=== PATIENT | male | born 1935 | race Caucasian/White ===

== ENCOUNTER 2016-10-09 08:50 | Emergency (ER) | payer MEDICARE, OTHER ==
[2016-10-09] MEDS ORDERED: MAG HYDROX/AL HYDROX/SIMETH 30 ML UDC PO STA (09:12)
[2016-10-09] MEDS ORDERED: LIDOCAINE VISCOUS 2% 15 ML UDC MM STA (09:12)
[2016-10-09] MEDS ORDERED: SUCRALFATE 1 GM/10 ML UDC PO STA (09:12)
--- NOTE | 2016-10-09 09:14 | ED Physician Documentation ---
History of Present Illness - Stated complaint Stated Complaint: ABD PX - Chief complaint Chief Complaint: General - History obtained from History obtained from: Patient - History of Present Illness Timing: How many hours ago (6) Pain level max: 6 Pain level now: 4 - Additonal information Additional information: Patient is an 81-year-old male who presents to the emergency department with epigastric abdominal pain that awoke him from sleep at approximately 3 AM today. States that he had "old meat" last night for dinner. No vomiting. No diarrhea. States that the pain feels burning and sharp. Does radiate to the chest. Is better with lying still, worse with moving or sitting up. Has not taken anything for the pain. Has never had these symptoms before. Denies any dyspnea, nausea. Denies any sweating. Does have a history of a cardiac "arrhythmia". Unclear what arrhythmia he has. He is on digoxin. No history of acute coronary syndrome Review of Systems Ten Systems: 10 systems reviewed and negative Constitutional: denies: Fever, Chills Ears: denies: Ear pain Nose: denies: Rhinorrhea / runny nose, Congestion Throat: denies: Sore throat Cardiac: denies: Palpitations, Calf pain Respiratory: denies: Dyspnea, Cough, Hemoptysis, Wheezing GI: denies: Hematemesis, Bloody / black stool Skin: denies: Rash Musculoskeletal: denies: Neck pain, Back pain Neurologic: denies: Headache PD PAST MEDICAL HISTORY - Past Medical History Past Medical History: Yes Cardiovascular: High cholesterol, Arrhythmia - Past Surgical History Past Surgical History: Yes - Present Medications Home Medications: Ambulatory Orders Medication Instructions Recorded Confirmed Cholesterol Medication 10/09/16 Digoxin [Lanoxin] mcg PO 10/09/16 - Allergies Allergies/Adverse Reactions: Allergies Allergy/AdvReac Type Severity Reaction Status Date / Time No Known Drug Allergies Allergy Verified 10/09/16 08:59 - Social History Does the pt smoke?: No Smoking Status: Never smoker Does the pt drink ETOH?: No Does the pt have substance abuse?: No - Immunizations Immunizations are current?: Yes PD ED PE NORMAL - Vitals Vital signs reviewed: Yes - General General: Alert and oriented X 3, No acute distress, Well developed/nourished - HEENT HEENT: PERRL, Moist mucous membranes - Neck Neck: Supple, no meningeal sign - Cardiac Cardiac: RRR, No murmur, Strong equal pulses - Respiratory Respiratory: No respiratory distress, Clear bilaterally - Abdomen Abdomen: Normal bowel sounds, Soft, Non distended, Other (Mild tenderness to palpation epigastric without peritoneal signs) - Derm Derm: Warm and dry - Extremities Extremities: No edema, No calf tenderness / cord - Neuro Neuro: Alert and oriented X 3 - Psych Psych: Normal mood, Normal affect Results - Vitals Vitals: Vital Signs - 24 hr 10/09/16 10/09/16 10/09/16 09:02 09:51 12:15 Temperature 37.0 C Heart Rate 57 L 66 60 Respiratory 16 15 20 Rate Blood Pressure 137/83 H 161/89 H 137/72 H O2 Saturation 95 97 97 Oxygen O2 Source Room air - EKG (time done) 0902 Rate: Rate (enter#) (60) Rhythm: NSR [place]: Normal Intervals: Prolonged CO QRS: Normal Ischemia: Normal ST segments Computer interpretation: Agree with computer - Labs Labs: Laboratory Tests 10/09/16 10/09/16 10/09/16 09:25 09:25 09:25 WBC 8.2 RBC 4.53 L Hgb 14.3 Hct 41.5 L MCV 91.5 MCH 31.7 H MCHC 34.6 RDW 13.0 Plt Count 136 MPV 10.2 Neut # 5.3 Lymph # 1.8 Harper # 0.8 Eos # 0.2 Baso # 0.0 Absolute Nucleated RBC 0.01 Nucleated RBCs 0.1 Sodium 140 Potassium 4.2 Chloride 103 Carbon Dioxide 27 Anion Gap 10.0 BUN 22 H Creatinine 1.1 Estimated GFR (MDRD) 64 L Glucose 113 H Calcium 9.8 Total Bilirubin 0.8 AST 24 ALT 20 Alkaline Phosphatase 63 Troponin I < 0.04 Total Protein 7.5 Albumin 4.3 Globulin 3.2 Albumin/Globulin Ratio 1.3 Lipase 26 10/09/16 13:02 WBC RBC Hgb Hct MCV MCH MCHC RDW Plt Count MPV Neut # Lymph # Harper # Eos # Baso # Absolute Nucleated RBC Nucleated RBCs Sodium Potassium Chloride Carbon Dioxide Anion Gap BUN Creatinine Estimated GFR (MDRD) Glucose Calcium Total Bilirubin AST ALT Alkaline Phosphatase Troponin I < 0.04 Total Protein Albumin Globulin Albumin/Globulin Ratio Lipase - Rads (name of study) Ct chest/abd/pelvis aorta Radiology: Prelim report reviewed, EMP read contemporaneously, See rad report ( 1. 4.8 cm fusiform ectasia of ascending thoracic aorta. 2. 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 3. 3.9 cm diameter aneurysmal dilatation of proximal descending thoracic aorta. Tortuous descending thoracic aorta. 4. No abdominal aortic aneurysm. 5. No aortic dissection. 6. No focal consolidation. 7. A 4.7 cm complex cystic lateral left liver lobe lesion. Dependent increased density, question of limited to debris or hemorrhage. Recommend comparison with prior outside studies if possible or follow-up imaging, preferably with MRI. 8. Two hypervascular liver lesions measuring up to 1.1 cm. Question vascular shunts or small liver lesions. 9. Diverticulosis. ) cxr Radiology: Prelim report reviewed, EMP read contemporaneously, See rad report ( Possible mild interstitial pulmonary edema. No focal airspace consolidation. Normal heart size. Prominence of the aortic arch may represent an aneurysm. Correlation with patient history is recommended. Chest CT angiography could be performed for further evaluation if indicated. ) PD MEDICAL DECISION MAKING - ED course Complexity details: reviewed results, re-evaluated patient, considered differential (No ST elevation WI, no aortic dissection, no PE, no tension pneumothorax, no aortic aneurysm), d/w patient ED course: Patient is an 81-year-old gentleman who presents to the emergency department with epigastric pain that awoke him from sleep. This resolved with a GI cocktail in the emergency department. On chest x-ray he was found to have concern for a possible aortic aneurysm, therefore CT scan was undertaken. CT scan revealed a 4.8cm fusiform ectasia of the ascending thoracic aorta as well as an aberrant right subclavian artery with 2.2 cm aneurysmal dilatation of the right subclavian arterial origin and a 3.9 cm diameter aneurysmal dilatation of the proximal descending thoracic aorta. He is also found to have a complex cystic lesion in the left lobe of the liver. Recommend a outpatient MRI for further characterization. Patient has no tenderness over the liver at this time. Asymptomatic in the ER. We will have him follow-up closely with his doctor for follow-up of all of the above findings. Patient is well-appearing, nontoxic. Patient counseled regarding signs and symptoms for which I believe and urgent re-evaluation would be necessary. Patient with good understanding of and agreement to plan and is comfortable going home at this time This document was made in part using voice recognition software. While efforts are made to proofread this document, sound alike and grammatical errors may occur. Departure - Departure Disposition: 01 Home, Self Care Clinical Impression: Resolved abdominal pain, Thoracic aortic aneurysm without rupture, Liver cyst Condition: Good Instructions: ED Aneurysm Abdominal Aortic Stable, ED Abdominal Pain Unkn Cause Follow-Up: Ab Lowry MD [Primary Care Provider] - Within 3 Days Comments: Return if you worsen. You need to follow-up with Dr. Lowry regarding your ascending thoracic aneurysm of 4.8 cm and Descending thoracic aortic aneurysm of 3.9 cm. You also have a 2.2 cm aneurysmal dilatation of the right subclavian artery. You also have a 4.7 cm complex cyst and near left liver lobe. The radiologist is recommending an MRI of your abdomen which will need to be done with your doctor as an outpatient. You will need follow up for all of these findings with your doctor. Return if you worsen especially if you develop chest or back pain. Your blood pressure was elevated today on check in to the emergency department. This does not mean that you have hypertension, it is a common phenomenon to check into the emergency department and have elevated blood pressure. I recommend that you see your primary care physician within the week to have it rechecked when you're feeling better. Discharge Date/Time: 10/09/16 14:11
[2016-10-09] MEDS ORDERED: LIDOCAINE VISCOUS 2% 15 ML UDC MM ONE (09:30)
[2016-10-09] MEDS ORDERED: SUCRALFATE 1 GM/10 ML UDC ONE (09:30)
[2016-10-09] MEDS ORDERED: MAG HYDROX/AL HYDROX/SIMETH 30 ML UDC ONE ×2 (09:31)
[2016-10-09 09:41] LABS: BASOPHILS % (AUTO) 0.5 %; EOSINOPHILS # (AUTO) 0.2 10^3/uL (0.0-0.7); EOSINOPHILS % (AUTO) 2.4 %; HCT - HEMATOCRIT 41.5 % (42.0-52.0); HGB - HEMOGLOBIN 14.3 g/dL (14.0-18.0); LYMPHOCYTES # (AUTO) 1.8 10^3/uL (1.5-3.5); LYMPHOCYTES % (AUTO) 22.1 %; MEAN CORPUSCULAR HEMOGLOBIN 31.7 pg (27.0-31.0); MEAN CORPUSCULAR HGB CONC 34.6 g/dL (32.0-36.0); MEAN CORPUSCULAR VOLUME 91.5 fL (80.0-94.0); MEAN PLATELET VOLUME 10.2 fL (7.4-11.4); MONOCYTES # (AUTO) 0.8 10^3/uL (0.0-1.0); MONOCYTES % (AUTO) 9.8 %; NEUTROPHILS # (AUTO) 5.3 10^3/uL (1.5-6.6); NEUTROPHILS % (AUTO) 65.2 %; NUCLEATED RED BLOOD CELLS AUTO 0.1 /100WBC; RED BLOOD COUNT 4.53 10^6/uL (4.70-6.10); UNCORRECTED WHITE BLOOD COUNT 8.2 x10^3/uL; WHITE BLOOD COUNT 8.2 x10^3/uL (4.8-10.8)
[2016-10-09 09:52] LABS: ALBUMIN/GLOBULIN RATIO 1.3 (1.0-2.2); BILIRUBIN,TOTAL 0.8 mg/dL (0.2-1.0); CALCIUM 9.8 mg/dL (8.5-10.3); CREATININE 1.1 mg/dL (0.6-1.2); POTASSIUM 4.2 mmol/L (3.5-5.0); TOTAL PROTEIN 7.5 g/dL (6.7-8.2)
--- NOTE | 2016-10-09 09:57 | XRAY Preliminary Report ---
Exam: XR Chest 1 View IMPRESSION: 1. Possible mild interstitial pulmonary edema. No focal airspace consolidation. 2. Normal heart size. 3. Prominence of the aortic arch may represent an aneurysm. Correlation with patient history is recom mended. Chest CT angiography could be performed for further evaluation if indicated. [facility] SITE ID: [id number]
--- NOTE | 2016-10-09 09:59 | XRAY Report ---
EXAM: CHEST RADIOGRAPHY EXAM DATE: 10/09/2016 09:46 AM. CLINICAL HISTORY: Chest pain. COMPARISON: None. TECHNIQUE: 1 view. FINDINGS: Lungs/Pleura: Mild linear interstitial opacities seen bilaterally could reflect mild interstitial pro cess such as pulmonary edema. No focal airspace consolidation. No evidence for pleural effusion or pn eumothorax. Mediastinum: Normal heart size and mediastinum. Tortuous thoracic aorta is noted with a prominent arc h which could represent an aneurysm. Other: No acute bony thoracic abdomen amount. IMPRESSION: 1. Possible mild interstitial pulmonary edema. No focal airspace consolidation. 2. Normal heart size. 3. Prominence of the aortic arch may represent an aneurysm. Correlation with patient history is recom mended. Chest CT angiography could be performed for further evaluation if indicated. [facility] Referring Provider Line: [phone] SITE ID: [id number]
[2016-10-09] MEDS ORDERED: IOPAMIDOL-300 100 ML VIAL IVP ONE (12:03)
[2016-10-09 12:15] VITALS: BP 137/72
--- NOTE | 2016-10-09 12:42 | CT Preliminary Report ---
Exam: CT Chest Angio (AORTA) IMPRESSION: 4.8 cm fusiform ectasia of ascending thoracic aorta. Aberrant right subclavian artery with 2.2 cm ane urysmal dilatation of right subclavian origin. 3.9 cm diameter aneurysmal dilatation of proximal desc ending thoracic aorta. Tortuous descending thoracic aorta. No abdominal aortic aneurysm. No aortic dissection. No focal consolidation. A 4.7 cm complex cystic lateral left liver lobe lesion. Dependent increased density, question if due to debris or hemorrhage. Recommend comparison with prior outside studies if possible or follow-up jose ging, preferably with MRI. 2 hypervascular liver lesions measuring up to 1.1 cm. Question vascular shunts or small liver lesions. Diverticulosis. [facility] SITE ID: [id number]
--- NOTE | 2016-10-09 13:49 | CT Report ---
REVISED: THIS REPORT WAS ORIGINALLY SIGNED ON 10/09/2016 @ 1349. ORDERS LINKED ON 10/13/2016. EXAM: CT ANGIOGRAM CHEST, ABDOMEN AND PELVIS EXAM DATE: 10/09/2016 10:59 AM. CLINICAL HISTORY: Possible aortic aneurysm, chest/abd pain. COMPARISONS: Chest x-ray same day. TECHNIQUE: Routine axial helical CT angiographic imaging was performed through the chest, abdomen, and pelvis. IV Contrast: 100 mL Isovue 300. Reconstructions: Coronal, sagittal, and 3D MIP reconstructions of the aorta. In accordance with CT protocol optimization, one or more of the following dose reduction techniques were utilized for this exam: automated exposure control, adjustment of mA and/or KV based on patient size, or use of iterative reconstructive technique. FINDINGS: Vascular Structures: Aberrant right subclavian artery, normal variant. Aneurysmal dilatation of right subclavian arterial origin measuring 2 x 2.2 cm diameter. Fusiform ectasia of ascending thoracic aorta measuring up to 4.8 cm diameter. Tortuous descending thoracic aorta. Aneurysmal dilatation of proximal descending thoracic aorta measuring 3.9 cm. Mid descending aorta measures 2.7 cm. Distal descending aorta 2.8 cm. Tortuous abdominal aorta without aneurysm. Infrarenal abdominal aorta measures 2 cm diameter. Distal abdominal aorta prior to bifurcation measures 1.8 cm. No aortic dissection. Lungs/Pleura: Areas if mild atelectasis and/or scarring within the lingula. Mild left greater than right lower lobe atelectasis. No focal consolidation. No pneumothorax or pleural effusion. Mediastinum: Normal. No cardiac enlargement or adenopathy. Abdominal Organs: There is a 4.6 x 4.7 cm complex cystic lateral left liver lobe lesion with dependent increased attenuation. There are 2 similar focal enhancing liver areas. These measure 1.1 cm within segment 2 and 0.8 cm within segment 8. Bilateral renal cysts. No hydronephrosis or suspicious mass. The pancreas, adrenal glands, and spleen are unremarkable. Peritoneal Cavity: Diverticulosis without focal inflammation. No dilated bowel. Pelvic Organs: Enlarged prostate. Bladder is partially distended and grossly unremarkable. Bones: Degenerative changes are noted within the cervical and lumbar spine and lower thoracic spine. Prominent degenerative disk changes at L2-L3 level. Other: 0.9 cm right thyroid nodule. IMPRESSION: 1. 4.8 cm fusiform ectasia of ascending thoracic aorta. 2. 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 3. 3.9 cm diameter aneurysmal dilatation of proximal descending thoracic aorta. Tortuous descending thoracic aorta. 4. No abdominal aortic aneurysm. 5. No aortic dissection. 6. No focal consolidation. 7. A 4.7 cm complex cystic lateral left liver lobe lesion. Dependent increased density, question of limited to debris or hemorrhage. Recommend comparison with prior outside studies if possible or follow-up imaging, preferably with MRI. 8. Two hypervascular liver lesions measuring up to 1.1 cm. Question vascular shunts or small liver lesions. 9. Diverticulosis. [facility] Referring Provider Line: [phone] SITE ID: [id number]
== END 2016-10-09 14:11 | disposition home or self-care (01) ==
LOC: ED 08:50
DX: I71.2 Thoracic aortic aneurysm, without rupture (principal); K76.89 Other specified diseases of liver; R03.0 Elevated blood-pressure reading, without diagnosis of hypertension; E78.00 Pure hypercholesterolemia, unspecified; I49.9 Cardiac arrhythmia, unspecified
CPT/HCPCS: 36415; 71010; 71275; 74175; 80053; 83690; 84484; 85025; 93005; 99284; A9270; Q9967

== ENCOUNTER 2016-10-15 09:29 | Outpatient (CLI) | payer MEDICARE, OTHER ==
[2016-10-15] MEDS ORDERED: GADOBUTROL 7.5 MMOL/7.5 ML VIAL IVP ONE (10:37)
--- NOTE | 2016-10-16 14:13 | MRI Report ---
EXAM: MR ABDOMEN WITH AND WITHOUT CONTRAST (MR LIVER) EXAM DATE: 10/15/2016 10:50 AM. CLINICAL HISTORY: Complex cyst of liver. COMPARISON: Abdominal CT angiography performed 10/09/2016. TECHNIQUE: Multiplanar breath-hold T1, T2, and DWI sequences obtained through the abdomen on an [facility] [place], [place] jeremy. Images obtained before and after administration of 7 mL Gadavist intravenous contrast. Multiph ase postcontrast images obtained of the liver and abdomen. FINDINGS: Lung Bases: Unremarkable. Liver: No fatty liver infiltration. Smooth liver contours. No MR evidence for cirrhosis. Patent juan r l and hepatic veins. Within the peripheral aspect of lateral left liver lobe segment 2, note is again made of a complex cy stic lesion measuring 4.5 x 4.5 x 4.6 cm. The lesion has heterogeneous appearance on precontrast T1-w eighted imaging with increased T1 signal compatible with hemorrhage. Postcontrast subtraction images show no evidence for enhancement. A thin septation is noted. T2-weighted images show central debris o r clot. No fat evident within the lesion. 4 mm segment 4A, T2 hyperintense focus with venous and persistent delayed enhancement compatible with benign hemangioma. Gallbladder: The gallbladder is partially distended and appears normal with no wall thickening or sto ne. Pancreas: The pancreas appears normal with no mass or ductal dilatation. Spleen: The spleen appears normal. Kidneys and Adrenals: No suspicious renal mass or hydronephrosis. Bilateral benign renal cysts are no reyna. These include a 3.2 cm right upper parapelvic cyst. Several small scattered right renal simple c yst. 2.9 cm left lower renal Bosniak II cyst with thin septations. The adrenals appear normal. Bowel: The small bowel and colon appear normal with no inflammation or obstruction. Retroperitoneum: The retroperitoneal structures appear normal with no mass or lymphadenopathy. IMPRESSION: 1. A 4.6 cm probable lateral left liver lobe hemorrhagic cyst or hematoma. Post-contrast subtraction images show no evidence for convincing internal enhancement to suggest HCC, adenoma or metastasis. T 2-weighted images show internal debris or clot. Recommend 6 month follow-up ultrasound or CT. 2. Small right liver lobe hemangioma. 3. Benign bilateral renal cysts. [facility] Referring Provider Line: [phone] SITE ID: [id number]
== END 2016-10-15 09:30 | disposition home or self-care (01) ==
LOC: DI 09:29
PROVIDERS: ATTEND Internal Medicine
DX: K76.89 Other specified diseases of liver (principal); D18.03 Hemangioma of intra-abdominal structures; N28.1 Cyst of kidney, acquired
CPT/HCPCS: 74183; A9585

== ENCOUNTER 2017-02-08 07:48 | Day surgery (SDC) | payer MEDICARE, OTHER ==
[~2017-02-08 07:48] MED LIST: ceFAZolin 2 GM/50 ML 2 GM/50 ML BAG IV ONE
[2017-02-08] MEDS ORDERED: LACTATED RINGERS 1,000 ML IV ONE ×3 (07:52→13:52)
[2017-02-08] MEDS ORDERED: BUPIVACAINE 0.5% PF 30 ML VIAL SUBQ ONE ×2 (08:51→11:22)
--- NOTE | 2017-02-08 11:52 | OPERATIVE REPORT ---
Operative Report - General Procedure Date: 02/08/17 Planned Procedure: TEP right inguinal herniorrhaphy Pre-Op Diagnosis: RIGHT inguinal hernia, possible LEFT inguinal hernia Procedure Performed: TEP bilateral indirect inguinal herniorrhaphy Post Op Diagnosis: BILATERAL indirect inguinal hernias - Procedure Note Primary Surgeon: Asher Simons MD Anesthesia Provider: Asher Nuno MD Anesthesia Technique: General ET tube, Local (30 mL 1/2% marcaine) IV Fluids (mL): 900 Estimated Blood Loss (mL): 10 Urine Output (mL): 125 Complications: None. - Other Other Information/Narrative: OPERATIVE DESCRIPTION/REPORT: After verbal and written informed consent was obtained detailing the risks of infection, bleeding requiring transfusion with its risks, nerve injury, and , and after I met with the patient confirming the surgery and the site of the surgery, the patient was brought to the operative suite and placed supine on the operating table. Great care was taken to avoid pressure points to prevent pressure necrosis or nerve injury. Monitoring devices were applied along with TEDs and pneumatic compressive stockings (to prevent DVT). The patient received preoperative antibiotics for surgical prophylaxis. Dr. Asher Nuno sedated and induced general anesthesia and provided anesthesia care for the entirety of the case. The patient was prepped and draped in the usual sterile manner. With the patient draped my initials were clearly visible. A "time in" then confirmed that the patient was identified with 3 identifiers ( name, date and medical record number), the history and physical was in the chart, the signed consent confirming the procedure was in the chart, the patient was in the correct position, the aforementioned prophylactic measures were in place or given, we had the correct personnel and equipment to complete the procedure and that anesthesia, surgery and nursing were given an opportunity to express any concerns. With the agreement of everyone in the room , we proceeded with the operation. A transverse skin incision was made below and to the right of the umbilicus to a length of approximately 3 cm. The incision was carried through the subcutaneous tissue. Bleeders were cauterized. The right rectus sheath was identified and incised lateral to the midline. The preperitoneal space was then developed following insertion of a Spacemaker balloon, which was inflated under direct vision. Following removal of the Spacemaker balloon, a #10 trocar was placed in the preperitoneal space and the preperitoneal space was insufflated with CO2 to a steady state pressure of 15 mmHg. A 10 mm 30 degree laparoscope was inserted in the preperitoneal space. Two #5 trocars were placed in the lower midline 5 cm and 10 cm away from the umbilical incision under direct vision and without incident. Landmarks including symphysis pubis, right and left Kennedy ligaments and right and left inferior epigastric vessels were identified. Dissection was then continued lateral to the transverse abdominis muscle bilaterally. The right side was addressed first. The internal ring was then explored for the presence of the indirect hernia sac and an indirect hernia was found. The sac was dissected free from the cord structures and the cremasteric muscles. A large cord lipoma was also dissceted back out of the internal ring. The dissection brought the peritoneum posterolaterally so that it would lay on proper side of the mesh. Exploration of the medial space showed no medial defect consistent with a direct hernia. A large size Bard 3D mesh (Lot #[id number] , reference #[id number], use by date 2021-12-18) was placed in the preperitoneal space and anchored to the symphysis pubis with a SecureStrap tacker (Lot # [id number], reference #[id number], use by date 2018-02-17). The mesh covered the internal ring as well as the medial space. Great care was taken to ensure that the peritoneum was swept down so that it could not "creep" behind the mesh and result in a recurrent hernia. The left side was then addressed. Again there was the presence of an indirect inguinal hernia and cord lipoma and no direct inguinal hernia. This side was repaired in exactly the same way as was as the right hand side with the two notable differences being that the hernia was smaller and less dissection was required and the mesh used was a large size Bard 3D mesh (Lot #[id number], reference #[id number], use by date 2021-12-18). 20 mL of 1/2% Marcaine was injected into the preperitoneal space and then remaining 10 mL at all three incisions. The preperitoneal space was then deflated and during the deflation the mesh was watched to ensure that it was sandwiched nicely in place and did not change position. All trocars were withdrawn. The defect in the rectus sheath was closed with 3 figure-8 0 Vicryl sutures. The skin incisions were closed with subcuticular 4-0 Monocryl suture. The prep was washed off and Mastisol and Steristrips were applied at all the incisions. At this point a time out was performed that confirmed that all the counts were correct, the procedure that was performed, the blood loss, the IV fluids administered, and the patients condition. The patient's scrotum was evaluated to ensure that the testicles were well seated within the scrotum and that there was no swelling. The prep was washed off and Benzoin and Steristrips were applied. Having tolerated the procedure well, the patient was subsequently extubated and taken to recovery room in good and stable condition.
[2017-02-08] MEDS ORDERED: PROPOFOL 200 MG/20 ML VIAL IVP ONE (11:58)
[2017-02-08] MEDS ORDERED: ROCURONIUM 50 MG/5 ML VIAL IVP ONE (11:58)
[2017-02-08] MEDS ORDERED: PHENYLEPHRINE 10 MG/ML VIAL IV ONE (11:58)
[2017-02-08] MEDS ORDERED: GLYCOPYRROLATE 1 MG/5 ML VIAL IVP ONE (11:58)
[2017-02-08] MEDS ORDERED: fentaNYL 100 MCG/2 ML VIAL IVP ONE (11:58)
[2017-02-08] MEDS ORDERED: NEOSTIGMINE 1 MG/1 ML 10 ML MDV IVP ONE (11:58)
[2017-02-08] MEDS ORDERED: ePHEDrine 50 MG/ML VIAL IVP ONE (11:58)
[2017-02-08] MEDS ORDERED: ACETAMINOPHEN 1,000 MG/100 ML 100 ML IV ONE (12:21)
[2017-02-08] MEDS ORDERED: ONDANSETRON 4 MG/2 ML VIAL ONE (14:10)
[2017-02-08 15:49] VITALS: BP 128/66
== END 2017-02-08 07:49 | disposition home or self-care (01) ==
LOC: SDS 07:48
PROVIDERS: ATTEND Surgery
PROC: 0YUA4JZ Supplement Bilateral Inguinal Region with Synthetic Substitute, Percutaneous Endoscopic Approach (ICD-10-PCS; 2017-02-08)
PROC: 0YUA0JZ Supplement Bilateral Inguinal Region with Synthetic Substitute, Open Approach (ICD-10-PCS; principal; 2017-02-08 09:00)
DX: K40.20 Bilateral inguinal hernia, without obstruction or gangrene, not specified as recurrent (principal); D17.6 Benign lipomatous neoplasm of spermatic cord; I10 Essential (primary) hypertension; I48.0 Paroxysmal atrial fibrillation
CPT/HCPCS: 49650; C1781; J0131; J0690; J7120

== ENCOUNTER 2017-03-07 19:39 | Outpatient (CLI) | payer MEDICARE, OTHER ==
--- NOTE | 2017-03-07 20:48 | Ultrasound Preliminary Report ---
Exam: US DUPLEX EXT VEINS RIGHT IMPRESSION: No evidence for deep venous thrombosis. [facility] The above findings were discussed with Dr. Erickson by Dr. Stacey Farley at 20:46 hrs on 03/07/17. SITE ID: [id number]
--- NOTE | 2017-03-07 21:02 | Ultrasound Report ---
EXAM: RIGHT LOWER EXTREMITY VENOUS ULTRASOUND EXAM DATE: 03/07/2017 08:26 PM. CLINICAL HISTORY: Right leg/foot swelling, tenderness. COMPARISON: None. TECHNIQUE: Real-time sonographic vascular imaging was performed by the corrugated box machine operator through the lower extremity utilizing both color-flow and Doppler spectral analysis. Multiple disability representative static jose ges were saved for review. FINDINGS: Common Femoral Vein (CFV): Normal. CFV-GSV Junction: Normal. Profunda Femoral Vein (PFV): Normal. Femoral Vein (FV) Prox: Normal. Femoral Vein (FV) Mid: Normal. Femoral Vein (FV) Dist: Normal. Popliteal Vein: Normal. Posterior Tibial Veins: Normal. Peroneal Veins: Normal. IMPRESSION: No evidence for deep venous thrombosis. [facility] The above findings were discussed with Dr. Erickson by Dr. Stacey Farley at 20:46 hrs on 03/07/17. Referring Provider Line: [phone] SITE ID: [id number]
== END 2017-03-07 19:40 | disposition home or self-care (01) ==
LOC: DI 19:39
PROVIDERS: ATTEND Family Medicine
DX: M79.604 Pain in right leg (principal); R22.41 Localized swelling, mass and lump, right lower limb

== ENCOUNTER 2021-07-08 08:24 | Outpatient (CLI) | payer MEDICARE, OTHER | END 2021-07-08 08:25 | disposition E | LOC: EMS 08:24 | DX: I46.9 Cardiac arrest, cause unspecified (principal) | CPT/HCPCS: A0425; A0433 ==

== ENCOUNTER 2021-07-08 08:36 | Emergency (ER) | payer MEDICARE, OTHER ==
[2021-07-08] MEDS ORDERED: CALCIUM CHLORIDE ABBOJECT 1000MG/10 ML SYRINGE IVP ONE (08:37)
[2021-07-08] MEDS ORDERED: SODIUM BICARBONATE ABBOJECT 50 MEQ/50 ML SYRINGE IVP ONE (08:37)
[2021-07-08] MEDS ORDERED: AMIODARONE 150 MG/3 ML VIAL IV ONE (08:37)
[2021-07-08] MEDS ORDERED: EPINEPHrine ABBOJECT 1 MG/10 ML SYRINGE IVP ONE (08:37)
[2021-07-08] MEDS ORDERED: AMIODARONE 150 MG/100 ML IV ONE (09:00)
[2021-07-08] MEDS ORDERED: AMIODARONE 360 MG/200 ML IV ONE (09:00)
[2021-07-08] MEDS ORDERED: AMIODARONE 360 MG/200 ML 200 ML IV ONE (09:06)
--- NOTE | 2021-07-08 09:11 | ED Physician Documentation ---
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 She was not physically able to perform good CPR. EMS arrived to find patient in PEA/agonal rhythm. ACLS with IV/intubated/epi. Changed to v-fib and defib. Back to sinus with faint pulses, then none by ED arrival.), Today Timing - onset during: Light activity (patient had been up and active just prior to found on floor.) Preceding symptoms: None (his said he was not having complaints prior to event.) Contributing factors: CAD Witnessed: Arrest not witnesssed (but saw him just few minutes prior, then found him unresponsive when went into next room.) Fall: Unknown Bystander CPR: No bystander CPR, Downtime before CPR (10-15 minutes per EMS dispatch/arrival time.) EMS findings: Unresponsive, Apneic, Pulseless, PEA Treatment ARTIFICIAL LOG MACHINE OPERATOR: CPR, Defibrillated, Oxygen, Intubated, Epi Advanced directive: No advanced directive, Full code Review of Systems Unable to obtain: Unresponsive, Intubated, Other (info from after her arrival) Constitutional: denies: Fever Cardiac: denies: Chest pain / pressure Respiratory: denies: Dyspnea, Cough GI: denies: Abdominal Pain, Vomiting, Diarrhea Neurologic: denies: Head injury PD PAST MEDICAL HISTORY - Past Medical History Cardiovascular: Hypertension, High cholesterol, Atrial fibrillation, Other (abdominal aneurysm repair) Respiratory: None Endocrine/Autoimmune: HyPOthyroidism GI: None : None HEENT: Chronic sinusitis, Other Psych: None, Depression Musculoskeletal: Other Derm: Other - Past Surgical History Past Surgical History: Yes HEENT: Tonsil/Adenoidectomy - Present Medications Home Medications: Ambulatory Orders Medication Instructions Recorded Confirmed Digoxin [Lanoxin] 250 mcg PO DAILY 02/07/17 02/08/17 Famotidine [Pepcid] 20 mg PO ONCE 02/07/17 02/08/17 Levothyroxine Sodium [Levoxyl] 75 mcg PO DAILY 02/07/17 02/08/17 Sildenafil Citrate [Viagra] 100 mg PO DAILY 02/07/17 02/08/17 Simvastatin 20 mg PO DAILY 02/07/17 02/08/17 atenoloL [Atenolol] 25 mg PO DAILY 02/07/17 02/08/17 - Allergies Allergies/Adverse Reactions: Allergies Allergy/AdvReac Type Severity Reaction Status Date / Time No Known Drug Allergies Allergy Verified 07/08/21 09:18 - Living Situation Living Situation: reports: With spouse/s.o. Living Arrangement: reports: At home - Social History Does the pt smoke?: No Smoking Status: Never smoker Does the pt drink ETOH?: No Does the pt have substance abuse?: No - Immunizations Immunizations are current?: Yes PD ED PE NORMAL - Vitals Vital signs reviewed: Yes (arrives CPR in progress. ) - General General: Other (unresponsive) - HEENT HEENT: Atraumatic - Respiratory Respiratory: Clear bilaterally, Other (symmetric breath sounds with bagging. ETT seems in place. End tidal CO2 showing 20s with good waveform. ) - Abdomen Abdomen: Non distended - Derm Derm: Normal color, Warm and dry - Extremities Extremities: No edema - Neuro Neuro: Other (unresponsive and no resp effort. ) Results - Vitals Vitals: Oxygen O2 Source Room air - EKG (time done) upon ROSC Rhythm: Other (junctional rhythm) Intervals: Wide QRS Ischemia: ST elevation c/w ischemia (V1 and AVR, with nonspecific changes diffusely otherwise. ) - Labs Labs: Laboratory Tests 07/08/21 07/08/21 07/08/21 09:03 09:03 09:03 WBC 9.1 RBC 3.73 L Hgb 12.1 L Hct 36.4 L MCV 97.6 H MCH 32.4 H MCHC 33.2 RDW 12.6 Plt Count 43 L MPV 12.0 H Neut # (Auto) Not Reportable Lymph # (Auto) Not Reportable Broome # (Auto) Not Reportable Eos # (Auto) Not Reportable Baso # (Auto) Not Reportable Absolute Nucleated RBC Not Reportable Total Counted 100 Band Neuts % (Manual) 4 Reactive Lymphs % (Man) 15 Abnorm Lymph % (Manual) 0 Myelocytes % 4 H Nucleated RBC % Not Reportable Neutrophils # (Manual) 2.3 Lymphocytes # (Manual) 6.2 H Monocytes # (Manual) 0.3 Eosinophils # (Manual) 0.0 Basophils # (Manual) 0.0 Differential Comment MANUAL DIFFERENTIAL RBC Morph Micro Appear 1+ ANISOCYTOSIS Bld Gas Analysis Time Sample Site ABG pH ABG pCO2 ABG pO2 ABG HCO3 ABG Total CO2 ABG O2 Saturation ABG Base Excess Kenneth Test Respiration Rate O2 Delivery Device Vent Mode FiO2 Tidal Volume PEEP Sodium 141 Potassium 3.9 Chloride 103 Carbon Dioxide 19 L Anion Gap 19.0 H BUN 28 H Creatinine 1.6 H Estimated GFR (MDRD) 41 L Glucose 335 H Calcium 7.5 L Total Bilirubin 0.6 AST 584 H ALT 551 H Alkaline Phosphatase 57 Troponin I High Sens 258.2 H* B-Natriuretic Peptide Total Protein 4.6 L Albumin 2.5 L Globulin 2.1 Albumin/Globulin Ratio 1.2 Lipase 67 H Last Dose Date Last Dose Time Digoxin 07/08/21 07/08/21 07/08/21 09:03 09:03 09:16 WBC RBC Hgb Hct MCV MCH MCHC RDW Plt Count MPV Neut # (Auto) Lymph # (Auto) Broome # (Auto) Eos # (Auto) Baso # (Auto) Absolute Nucleated RBC Total Counted Band Neuts % (Manual) Reactive Lymphs % (Man) Abnorm Lymph % (Manual) Myelocytes % Nucleated RBC % Neutrophils # (Manual) Lymphocytes # (Manual) Monocytes # (Manual) Eosinophils # (Manual) Basophils # (Manual) Differential Comment RBC Morph Micro Appear Bld Gas Analysis Time 0929 Sample Site RIGHT RADIAL ABG pH 7.22 L ABG pCO2 29 L ABG pO2 112 H ABG HCO3 11.5 L ABG Total CO2 12.4 L ABG O2 Saturation 97 ABG Base Excess -14.8 L Kenneth Test POSITIVE Respiration Rate 22 O2 Delivery Device VENTILATOR Vent Mode ASSIST/CONTROL FiO2 100.00 Tidal Volume 400 PEEP 5 Sodium Potassium Chloride Carbon Dioxide Anion Gap BUN Creatinine Estimated GFR (MDRD) Glucose Calcium Total Bilirubin AST ALT Alkaline Phosphatase Troponin I High Sens B-Natriuretic Peptide 150 H Total Protein Albumin Globulin Albumin/Globulin Ratio Lipase Last Dose Date UNK Last Dose Time UNK Digoxin 0.5 - Rads (name of study) chest xray Radiology: Prelim report reviewed (interstitial edema. ETT at bill, suggested to pull back 2 cm. ), See rad report repeat CXR Radiology: Prelim report reviewed, EMP read contemporaneously (no PTX, increased edema. ), See rad report PD MEDICAL DECISION MAKING - ED course Complexity details: reviewed results, re-evaluated patient, considered differential (consider acute GA. Had initially PEA rhythm so consider volume, K, acidosis, voume, glucose, tamponade, etc. ), d/w patient, d/w family ED course: Arrived with CPR in progress, pulses palpable with compressions. Intubated with symmetric sounds. Given Epi and bicarb, with then palpable pulses briefly. This slowed to oscar without pulses and CPR resumed. More ACLS and on pulse check, was in coarse vfib. Defib and resumed CPR. given epi. Next check fine vfib. Shocked and amiodarone. Next pulse check was junctional with pulses. Amiodarone and norepineophrine drips started due to low BP. Bedside U/S showed symmetric but weak contractions. No pericardial fluid and brief abd look did not show free fluid in abd. His condition wavered from pulses to faint pulses. He did seem responsive to bicarb with good return of pulses/contractility. Norepi maxed but BP still not concistently adequate. He is on digoxin and has junctional rhythm with wide QRS. Lab was going to be an hour or so for dig level. So ordere DigiFab for concern of dig toxicity. Also initiated bicarb drip. He was still having undulating level of pressure/pulses. EPi and CPR intermittently when appropriate. I talked with [facility] ER physician who also consulted their cardiology. Patiet ECG did not fit STEMI and they did not have ICU beds. Attempt for transfer as seemed stable/critical with continual pulse/BP on pressors for over 40 minutes. 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 Epi drip started and bolus dosing. Brief episode of desats on vent was improved with BVM for short time. perhaps mucous plugging or such. Repeat CXR showed still correct tube position and no PTX. The pattenr of then brief ROSC with pulses then fading to no pulse/minimal contractility on U/S, responding briefly to meds and CPR occured a few times over the next 20-30 minutes. He did not attain level of stability for transfer. [employer] personnel were in ER assisting with code and awaiting stability and accepting facility. However, the returning rhythm degraded to just agonal rhythm and warranted continued CPR. Time had now been 2 1/2 hours of in and out adequate perfusion with CPR in between. Family present in ER and I discussed with them that the heart function was worsening and now not really present. Shared consensus of futility at this point and the resuscitation was ceased. Refer to Nursing notes, code sheet, and Code timeline for particulars of treatments and medications/timing. - Critical Care Time(min): 125 Time Includes: Direct patient care, Reassess patient, Document care, Coordinate care, Medical consult, See progress note Data interpretation: Labs, Pulse ox, ABG, CXR Procedures excluded from critical care time: EKG Departure - Departure Disposition: 20 Clinical Impression: Myocardial injury, Cardiac arrest Condition: Stable Discharge Date/Time: 07/08/21 12:48
[2021-07-08 09:14] LABS: BASOPHILS % (AUTO) 0.3 %; EOSINOPHILS % (AUTO) 0.8 %; HCT - HEMATOCRIT 36.4 % (42.0-52.0); HGB - HEMOGLOBIN 12.1 g/dL (14.0-18.0); LYMPHOCYTES % (AUTO) 64.7 %; MEAN CORPUSCULAR HEMOGLOBIN 32.4 pg (27.0-31.0); MEAN CORPUSCULAR HGB CONC 33.2 g/dL (32.0-36.0); MEAN CORPUSCULAR VOLUME 97.6 fL (80.0-94.0); MONOCYTES % (AUTO) 2.8 %; NEUTROPHILS % (AUTO) 23.8 %; PLT - PLATELET COUNT 43 10^3/uL (130-450); RED BLOOD COUNT 3.73 10^6/uL (4.70-6.10); RED CELL DISTRIBUTION WIDTH 12.6 % (12.0-15.0); WHITE BLOOD COUNT 9.1 x10^3/uL (4.8-10.8)
[2021-07-08 09:18] LABS: ABNORMAL LYMPHS % (MANUAL) 0 %
[2021-07-08] MEDS ORDERED: EPINEPHrine 4 MG in DEXTROSE 5% 246 ML IV STA (09:19)
[2021-07-08] MEDS ORDERED: EPINEPHrine 1 MG/ML AMP ONE ×2 (09:21→09:22)
--- NOTE | 2021-07-08 09:21 | XRAY Report ---
PROCEDURE: Chest 1 View X-Ray INDICATIONS: POST CPR TECHNIQUE: One view of the chest was acquired. COMPARISON: 10/09/2016. FINDINGS: Surgical changes and devices: ET tube tip is at the level of bill and can be pulled back by 2 to 3 cm.. Lungs and pleura: No pleural effusions or pneumothorax. Hazy airspace opacities are seen scattered i n bilateral lung jaquez suggestive of extensive pulmonary edema. Underlying multilevel bibasilar infi ltrates cannot be excluded. Mediastinum: Tortuous thoracic aorta is seen. Heart size is normal. Bones and chest wall: No suspicious bony lesions. Overlying soft tissues appear unremarkable. IMPRESSION: ET tube tip is at the level of bill and can be pulled back by 2 to 3 cm. Extensive bilateral patchy airspace opacities. No pleural effusion or gross pneumothorax. Reviewed by: Bart Perry MD on 07/08/2021 9:20 AM PDT Approved by: Bart Perry MD on 07/08/2021 9:20 AM PDT Station ID: [id number]
[2021-07-08 09:31] LABS: ABG BASE EXCESS -14.8 mmol/L (-2.0-3.0); ABG HCO3 11.5 mmol/L (22.0-26.0); ABG OXYGEN SATURATION 97 % (94-98); ABG PCO2 29 mmHg (34-45); ABG PH 7.22 (7.35-7.45); ABG PO2 112 mmHg (80-100); ABG TCO2 12.4 MMOL/L (21.0-29.0)
[2021-07-08 09:32] LABS: ABG MODE OF VENTILATION ASSIST/CONTROL; ABG RESPIRATORY RATE 22 b/min; ALLEN TEST POSITIVE
[2021-07-08 09:36] LABS: ALBUMIN 2.5 g/dL (3.2-5.5); ALBUMIN/GLOBULIN RATIO 1.2 (1.0-2.2); BILIRUBIN,TOTAL 0.6 mg/dL (0.2-1.0); CALCIUM 7.5 mg/dL (8.5-10.3); CREATININE 1.6 mg/dL (0.6-1.2); TOTAL PROTEIN 4.6 g/dL (6.7-8.2)
[2021-07-08 09:38] LABS: POTASSIUM 3.9 mmol/L (3.5-5.0)
[2021-07-08 09:50] LABS: BAND NEUTROPHILS % (MANUAL) 4 %; DIFFERENTIAL COMMENT MANUAL DIFFERENTIAL; LYMPHOCYTES # (MANUAL) 6.2 10^3/uL (1.5-3.5); LYMPHOCYTES % (MANUAL) 53 %; MONOCYTES # (MANUAL) 0.3 10^3/uL (0.0-1.0); MYELOCYTES % (MANUAL) 4 %; NEUTROPHILS # (MANUAL) 2.3 10^3/uL (1.5-6.6); RBC MORPHOLOGY (MULTIPLE) 1+ ANISOCYTOSIS (NORMAL); REACTIVE LYMPHS % (MANUAL) 15 %
[2021-07-08] MEDS ORDERED: [UNRECOGNIZED DRUG - OTHER] IV STA (10:11)
[2021-07-08] MEDS ORDERED: SODIUM CHLORIDE 0.9% IV STA (10:11)
--- NOTE | 2021-07-08 10:18 | CT Report ---
PROCEDURE: HEAD WO INDICATIONS: post CPR ROSC TECHNIQUE: Noncontrast 4.5 mm thick angled axial sections acquired from the foramen magnum to the vertex. For r adiation dose reduction, the following was used: automated exposure control, adjustment of mA and/or kV according to patient size. COMPARISON: None. FINDINGS: Image quality: Motion artifact is noted. CSF spaces: Basal cisterns are patent. No extra-axial fluid collections. Ventricles are normal in size and shape. Brain: No midline shift. No intracranial masses or hemorrhage. Sebastian-white matter interface is norm al. Skull and face: Calvarium and visualized facial bones are intact, without suspicious lesions. Sinuses: Moderate mucosal thickening is seen involving the maxillary sinuses, left worse than right. No significant abnormal fluid can be seen within the mastoid air cells. IMPRESSION: No intracranial hemorrhage is seen. No significant intracranial abnormality is seen. If there is strong clinical concern for a stroke, please consider a dedicated brain MRI for further e valuation (assuming that there is no contraindication to MRI). Incidental note is made of: Paranasal sinus disease Reviewed by: Mingo Lo MD on 07/08/2021 9:17 AM AMADO Approved by: Mingo Lo MD on 07/08/2021 9:17 AM AMADO Station ID: [id number]
[2021-07-08] MEDS ORDERED: SODIUM BICARBONATE 100 MEQ in DEXTROSE 5% 1,000 ML IV STA (10:32)
[2021-07-08 10:50] LABS: DIGOXIN 0.5 ng/mL
--- NOTE | 2021-07-08 10:59 | XRAY Report ---
PROCEDURE: Chest 1 View X-Ray INDICATIONS: lower sats TECHNIQUE: One view of the chest was acquired. COMPARISON: Chest radiographs 07/08/2021 at 8:37 AM, and 10/09/2016 FINDINGS: Surgical changes and devices: Endotracheal tube has been pulled back, now in satisfactory position a pproximately 4 cm above the bill. Lungs and pleura: Bilateral peripheral airspace opacities do not appear significant interval change. No definite pleural effusion or pneumothorax. The left costophrenic angle is partially excluded from the [id number] of this exam. Mediastinum: Tortuous thoracic aorta again seen. Heart size is stable. Bones and chest wall: No suspicious bony lesions. Overlying soft tissues appear unremarkable. IMPRESSION: 1.Endotracheal tube is been repositioned and, now in satisfactory position with tip approximately 4 c m above the bill. 2.Stable bilateral airspace opacities. Reviewed by: Star Solorzano MD on 07/08/2021 10:58 AM PDT Approved by: Star Solorzano MD on 07/08/2021 10:58 AM PDT Station ID: [id number]
--- NOTE | 2021-07-08 11:28 | ED Physician Documentation ---
ED Addendum - Addendum Addendum: 07/08/21 11:27 Procedure note, central line: Consent was not obtained given the emergent nature of the procedure and patient was undergoing CPR at the time. The patient was prepped twice with ChloraPrep. I wore cap, mask, gown, sterile gloves. Full sterile sheet was utilized. Using real-time ultrasound guidance the Right femoral vein was accessed and using Seldinger technique a triple-lumen 7 Turkmen central line was placed in standard fashion and sutured into place without imme diate complications.
== END 2021-07-08 12:48 | disposition expired ==
LOC: EDSEX → EDUNIT# → ED 08:36
DX: I46.9 Cardiac arrest, cause unspecified (principal); I71.2 Thoracic aortic aneurysm, without rupture; I10 Essential (primary) hypertension
CPT/HCPCS: 36415; 36600; 51702; 70450; 71045; 80053; 80162; 82803; 83690; 83880; 84484; 85025; 92950; 93005; 94002; 96365; 96366; 96368; 96375; 99291; 99292; J0282; J1162; J7040; 94770